=== PATIENT | female | born 1940 | race Caucasian/White ===

== ENCOUNTER → 2023-09-09 10:57 | Outpatient (REF) | payer OTHER, SELFPAY | LOC: RCS 10:57 | PROVIDERS: ATTENDING PHYSICIAN Internal Medicine Cardiovascular Disease; FAMILY PHYSICIAN Family Medicine | DX: I25.10 Atherosclerotic heart disease of native coronary artery without angina pectoris (principal); Z95.0 Presence of cardiac pacemaker; Z95.3 Presence of xenogenic heart valve; R93.1 Abnormal findings on diagnostic imaging of heart and coronary circulation | CPT/HCPCS: 93306 ==

== ENCOUNTER → 2024-08-29 12:58 | Outpatient (REF) | payer OTHER, SELFPAY | LOC: RCS 12:58 | PROVIDERS: ATTENDING PHYSICIAN Internal Medicine Cardiovascular Disease | DX: Z95.2 Presence of prosthetic heart valve (principal) | CPT/HCPCS: 93306 ==